=== PATIENT | female | born 1945 | race Two or more races ===

== ENCOUNTER 2023-03-02 06:16 | Day surgery (SDC) | payer OTHER ==
[~2023-03-02] VITALS: Ht 142.2 cm; Wt 54.4 kg
[~2023-03-02 06:16] MED LIST: ARICEPT10 MG PO; LOSARTAN-HCTZ1 EAC1 PO; NAMENDA10 MG PO
== END 2023-03-02 16:25 | disposition home or self-care (01) ==
LOC: CIR.AMB 06:16
PROVIDERS: ATTEND Colon & Rectal Surgery
DX: R15.9 Full incontinence of feces (principal); Z20.822 Contact with and (suspected) exposure to COVID-19; Z88.2 Allergy status to sulfonamides; Z88.1 Allergy status to other antibiotic agents
CPT/HCPCS: 64581; 95971; C1767

== ENCOUNTER 2023-03-16 05:10 | Day surgery (SDC) | payer OTHER | END 2023-03-16 15:45 | disposition home or self-care (01) | LOC: CIR.AMB 05:10 | PROVIDERS: ATTEND Colon & Rectal Surgery | DX: R15.9 Full incontinence of feces (principal); Z20.822 Contact with and (suspected) exposure to COVID-19; Z88.1 Allergy status to other antibiotic agents; Z88.2 Allergy status to sulfonamides | CPT/HCPCS: 64590; 95971; C1767 ==